=== PATIENT | female | born 1980 | race Caucasian/White ===

== ENCOUNTER → 2019-11-09 | Outpatient (CLI) | payer BC ==
--- NOTE | 2019-11-09 13:35 | KCIC ---
LUMBAR SPINE WO CONTRAST History:Lumbar nerve root compression. Left leg and knee pain. Technique: Multiplanar, multi sequential MR imaging was performed of the lumbar spine. Comparison: None Findings: Normal vertebral body height and alignment. No fracture. Conus terminates at the normal location. No evidence of nerve root clumping. L1-L2: No canal or neuroforaminal narrowing. L2-L3: No canal or neuroforaminal narrowing. Mild facet arthropathy. L3-L4: No canal or neuroforaminal narrowing. Mild facet arthropathy. L4-L5: Small central disc protrusion. Moderate facet arthropathy. No canal or neuroforaminal narrowing. L5-S1: Disc height loss. Moderate facet arthropathy. No canal or neuroforaminal narrowing. Impression: 1. Mild multilevel lumbar spondylosis. No significant canal or neuroforaminal narrowing. Electronically signed by: Arnold Macedo DO (11/09/2019 1:32 PM) [id number]
--- NOTE | 2019-11-09 15:02 | KCIC ---
STUDY: MRI of the left knee without contrast INDICATION: Twisting injury. Prior surgery. Ongoing pain and instability. COMPARISON: None. TECHNIQUE: Multiplanar MR imaging of the left knee performed without the use of intravenous or intra-articular contrast. FINDINGS: The study is degraded by patient body habitus which necessitated the use of a larger coil. Menisci: Intact lateral meniscus. The medial meniscus is extruded from the joint line by approximately 5 mm. Globular prominence of the medial meniscus posterior horn with heterogeneous signal and possible oblique undersurface tear as seen on image 8 series 12. Subsequently, the posterior horn and root are normally small in caliber with heterogeneous signal. Root insertional fibers remain intact. Cruciate ligaments: Intact. Collateral ligaments: No acute injury. Tendons: The extensor mechanism is intact. The additional tendons at the knee are unremarkable. Cartilage: Patellofemoral: Partial thickness chondrosis of the patella centered at the median ridge. 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 Lateral compartment: No full-thickness defect is well seen. Medial compartment: High-grade/full-thickness chondral loss at the anterior aspect of the medial femoral condyle. Slight articular surface depression in this region, image 17 series 9, with confluent surrounding marrow edema. Bones: As above, confluent edema at the anterior/lateral aspect of the medial femoral condyle overlying chondral loss and a small region of articular surface concavity. Lateral patellar tilt/subluxation. Miscellaneous: Moderate volume knee joint effusion. Small Green's cyst. IMPRESSION: 1. Degraded study secondary to patient body habitus necessitating the use of a larger than normal coil with resultant diminished [id number] ratio. 2. Focal globular prominence of the medial meniscus posterior horn with heterogeneous signal and a possible undersurface oblique tear (image 8 series 12). More posteriorly, very diminutive size of the medial meniscus posterior horn and root which could be from chronic tearing or prior debridement. Recommend correlation with patient's surgical history. Intact lateral meniscus and cruciate ligaments. 3. High-grade/full-thickness chondral loss at the anterior/lateral aspect of the medial femoral condyle. At this location there is slight articular surface depression with surrounding confluent edema. Though this edema could be reactive from chondral loss, if there has been recent trauma a mild subchondral impaction fracture is a consideration. An additional consideration would be a developing insufficiency fracture. 4. 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 5. Lateral patellar tilt/subluxation. 6. Moderate knee joint effusion and a very small Green's cyst. Electronically signed by: ETHEL MAXWELL MD (11/09/2019 2:59 PM) [id number]
== END | disposition home or self-care (01) ==
LOC: KCIC MRI 09:02
PROVIDERS: ATTEND Orthopaedic Surgery
DX: M25.462 Effusion, left knee (principal); M71.22 Synovial cyst of popliteal space [Baker], left knee; M47.816 Spondylosis without myelopathy or radiculopathy, lumbar region; M51.26 Other intervertebral disc displacement, lumbar region
CPT/HCPCS: 72148; 73721